=== PATIENT | male | born 1955 | race Caucasian/White ===

== ENCOUNTER 2017-11-25 12:03 | Emergency (ER) | payer OTHER ==
[2017-11-25] MEDS ORDERED: ALBUTEROL SULFATE/IPRATROPIUM 3 ML NEBU IH ONE ×2 (12:25→12:36)
--- NOTE | 2017-11-25 12:29 | ERNOTE ---
Date of Service: 11/25/17 Time Seen by Provider: 11/25/17 12:21 Stated Complaint: body aches, coughing Presenting Symptoms:: cough Source: patient Exam Limitations: no limitations Immunizations: IMMUNIZATION HX History of Influenza Vaccine Yes Allergies/Adverse Reactions: Allergies No Known Allergies Allergy (Verified 11/25/17 12:11) Home Medications: HOME MEDICATIONS Aspirin 81 mg PO DAILY 09/18/15 [Last Taken Unknown] Losartan Potassium 100 mg PO DAILY 09/18/15 [Last Taken Unknown] Nexium 20 mg PO DAILY 09/18/15 [Last Taken Unknown] Hydrochlorothiazide 12.5 mg PO DAILY 12/24/15 [Last Taken Unknown] Albuterol Sulfate [Proair Hfa] 2 puff IH Q4H PRN #1 inhaler 11/25/17 [Last Taken Unknown] Cetirizine HCl [Zyrtec] 10 mg PO DAILY 11/25/17 [Last Taken Unknown] Meloxicam [Mobic] 7.5 mg PO DAILY 11/25/17 [Last Taken Unknown] Mv-Min/FA/Vit K/Lycop/Lut/Zeax [Ocuvite Eye + Multi Tablet] 1 each PO DAILY 01/07 [Last Taken Unknown] - History of Present Ilness Narrative: Patient presents to the ED with cough and body aches since Monday night. 3 days of Sx. Harsh cough without other SOB. No CP. No significant productive sputum. No calf pain or leg swelling, no CP. He tells me he was concerned about influenza and/or pneumonia. Timing: constant Severity: moderate Frequency/Possible Cause: Reports: other - URI Sx Modifying Factors - Improves: Reports: nothing Modifying Factors - Worsens: Reports: nothing Associated Symptoms: Reports: cough, muscle aches. Denies: chest pain/soreness , shortness of breath, wheezing, lightheadedness, headache, sore throat Prior Treatment: Denies: recently seen Review of Systems - Review of Systems Constitutional: Present: chills ENT: Present: See HPI Respiratory: Present: See HPI Cardiology: Absent: chest pain Gastrointestinal/Abdominal: Absent: abdominal pain Skin: Absent: rash Neurological: Absent: weakness - Patient's Past Medical History Patient History - Medical: GERD Patient History - Cardiac/Respiratory: Hypertension Patient History - Cancer: No Hx of Cancer Patient History - Surgical Procedures: Appendectomy, Other - Social History Living Situations: home Alcohol Use: none Drug Use: none - Immunizations History of Influenza Vaccine: Yes Physical Exam - Physical Exam General Appearance: Present: alert, no apparent distress, other - occasional cough Head Exam: Present: normal inspection, no evidence of injury Eye Exam: Normal inspection: bilateral, PERRL: bilateral Ears, Nose, Throat: Present: nasal congestion. Absent: pharyngeal erythema, pharyngeal swelling, tonsillar exudate, tonsillar swelling, dry mucous membranes Neck: Present: normal inspection Respiratory: Present: no respiratory distress, normal breath sounds, no accessory muscle use, lungs clear Cardiovascular/Chest: Present: regular rate, rhythm Gastrointestinal/Abdominal: Present: normal bowel sounds, nontender, soft Back Exam: Present: normal range of motion Extremity Exam: Present: normal inspection, no edema, other - no findings of DVT. Neurological Exam: Present: alert, no motor/sensory deficits Skin Exam: Present: normal color, warm/dry. Absent: skin rash ED Progress - Results and Orders Patient's Lab Results:: I have reviewed the patient's lab results. - Vital Signs Patient's Vital Signs:: I have reviewed the patient's vital signs. Vital Signs: Vital Signs 11/25/17 12:05 Temperature 36.5 C Pulse Rate 105 H Respiratory 12 Rate Blood Pressure 140/83 O2 Sat by Pulse 93 Oximetry - X-Ray X-Ray #1 X-Ray: chest Interpretation: Interp. by me X-ray Comments: Not being read by radiology in real time. NAPP by my reading. - Progress/Reassessment Chief Complaint: Upper Respiratory Symptoms Progress Note-Subjective: 11/25/17 13:20 Patien with influenza A. Out of the 48 hour treatment window, sick for 3 days. Inhaler for cough. Symptomatic care. No apparent complications at this time. No tachypnea and no hypoxia. He feels like going home. I discussed warning signs and reasons to return as well as the need for close f/u. Departure Clinical Impression: Influenza - Departure Disposition: Home self-care Condition: Stable Instructions: Influenza, Adult, [id number] Additional Instructions: Rest. Fluids. Inhaler for cough. Follow-up with your doctor in 3 days for a re-check. Return for fever, trouble breathing or if your condition worsens or changes in any way. Referrals: Amarilis Soliz MD [Primary Care Provider] - Prescriptions: Albuterol Sulfate [Proair Hfa] 2 puff IH Q4H PRN #1 inhaler PRN Reason: Shortness Of Breath
[2017-11-25 13:30] VITALS: BP 142/73
== END 2017-11-25 13:30 | disposition home or self-care (01) ==
LOC: ER 12:03
DX: J10.1 Influenza due to other identified influenza virus with other respiratory manifestations (principal)